=== PATIENT | female | born 1995 | race Caucasian/White ===

== ENCOUNTER 2021-04-11 09:20 | Outpatient (CLI) | payer OTHER | END 2021-04-11 09:24 | disposition home or self-care (01) | LOC: PPH VACUNA 09:20 | PROVIDERS: ATTEND Emergency Medicine Pediatric Emergency Medicine | DX: Z23 Encounter for immunization (principal) ==

== ENCOUNTER 2021-07-15 03:00 | Outpatient (CLI) | payer OTHER | END 2021-07-15 03:30 | disposition home or self-care (01) | LOC: PPH VACUNA 03:00 | PROVIDERS: ATTEND Emergency Medicine Pediatric Emergency Medicine | DX: Z23 Encounter for immunization (principal) ==

== ENCOUNTER 2022-03-18 14:30 | Outpatient (CLI) | payer OTHER | END 2022-03-18 15:31 | disposition home or self-care (01) | LOC: LAB 14:30 | PROVIDERS: ATTEND General Practice | DX: R05.9 Cough, unspecified (principal); R50.9 Fever, unspecified; R06.02 Shortness of breath; Z20.822 Contact with and (suspected) exposure to COVID-19 ==